=== PATIENT | male | born 1955 | race Caucasian/White ===

== ENCOUNTER 2022-02-15 08:53 | Day surgery (SDC) | payer MEDICARE, OTHER ==
--- NOTE | 2022-02-15 09:20 | ANESTHESIA ---
Pre-Anesthesia VS, & Labs - Diagnosis family hx colon CA, personal hx of colon polyps - Procedure colonoscopy - NPO >8 hours Last Fluid Intake: am prep Home Medications and Allergies Allergies/Adverse Reactions: Allergies Allergy/AdvReac Type Severity Reaction Status Date / Time Penicillins Allergy Hives Verified 02/14/22 13:06 Anes History & Medical History - Anesthetic History Anesthesia Complications: reports: No previous complications Family history of Anesthesia Complications: Denies Family history of Malignant Hyperthermia: Denies - Medical History Pulmonary: reports: None Gastrointestinal: reports: None Urinary: reports: None Musculoskeletal: reports: None Endocrine/Autoimmune: reports: None Skin: reports: None History of Cancer?: No - Surgical History General: reports: Appendectomy, Colonoscopy Eyes Ears Nose Throat (EENT): reports: Tonsil/Adenoidectomy Orthopedic: reports: Shoulder arthroplasty Exam General: Alert, Oriented x3, Cooperative Dental: WNL Mouth Opening: Greater than 4 Fingerbreadths Mallampati classification: I, II Thyromental Distance: greater than 6 cm Respiratory: Lungs clear, Normal breath sounds, No respiratory distress Cardiovascular: Regular rate Neurological: Normal speech Mental/Cognitive Status: Alert/Oriented X3, Normal for patient Cognitive Status: Within normal limits Plan Anesthesia Type: Total IV Consent for Procedure(s) Verified and Reviewed: Yes Code Status: Attempt Resuscitation ASA classification: 2-Mild systemic disease Is this case an emergency?: No
[2022-02-15] MEDS ORDERED: LACTATED RINGERS 1,000 ML IV ONE ×2 (09:24→09:55)
[2022-02-15 10:56] VITALS: BP 124/80
--- NOTE | 2022-02-15 13:33 | ANESTHESIA POST OP EVALUATION ---
Anesthesia Post Eval - Post Anesthesia Eval Vitals: Last Vital Signs Temp 36.4 C L 02/15/22 10:25 Pulse 70 02/15/22 10:25 Resp 16 02/15/22 10:25 BP 124/80 02/15/22 10:25 Pulse Ox 97 02/15/22 10:25 CV Function Including HR & BP: Stable Pain Control: Satisfactory Nausea & Vomiting: Negative Mental Status: Baseline Respiratory Status: Airway Patent Hydration Status: Satisfactory Anesthesia Complications: None
== END 2022-02-15 08:54 | disposition home or self-care (01) ==
LOC: SDS 08:53
PROVIDERS: ATTEND Surgery
DX: Z12.11 Encounter for screening for malignant neoplasm of colon (principal); K57.30 Diverticulosis of large intestine without perforation or abscess without bleeding; K64.4 Residual hemorrhoidal skin tags; K64.8 Other hemorrhoids; Z80.0 Family history of malignant neoplasm of digestive organs; Z86.010 Personal history of colon polyps
CPT/HCPCS: G0105; J7120